=== PATIENT | female | born 1950 | race Caucasian/White ===

== ENCOUNTER → 2018-06-29 07:49 | Outpatient (CLI) | payer OTHER, SELFPAY ==
[2018-06-29 08:14] LABS: Add Manual Diff / Slide Review NO; Basophils Percent Auto 0.9 % (0-2); Eosinophils Percent Auto 2.1 % (2-4); Hematocrit 43.1 % (36-46); Hemoglobin 14.7 g/dL (12.0-16.0); Lymphocytes Percent Auto 24.8 % (25-40); Mean Corpuscular HGB Conc 34.2 % (30-36); Mean Corpuscular Hemoglobin 31.2 PG (26-34); Mean Corpuscular Volume 91.2 fL (80-100); Monocytes Percent Auto 6.3 % (3-14); Neutrophils Absolute Auto 5900 /uL (3000-5900); Neutrophils Percent Auto 65.9 % (50-75); Platelet Count 446 X10^3/uL (150-400); Red Blood Cell Count 4.73 X10^6/uL (4.0-5.2); Red Cell Distribution Width 13.6 % (11.6-14.8)
[2018-06-29 08:25] LABS: Alanine Aminotransferase 26 IU/L (9-52); Albumin 4.2 g/dL (3.5-5.0); Albumin Globulin Ratio 1.6 (1.0-2.8); Alkaline Phosphatase 67 U/L (38-126); Aspartate Aminotransferase 18 IU/L (14-36); BUN Creatinine Ratio 18.6 (6-22); Bilirubin Total 0.5 mg/dL (0.2-1.3); Blood Urea Nitrogen 13 mg/dL (7-17); Carbon Dioxide 26 mmol/L (22-32); Chloride 107 mmol/L (98-107); Cholesterol 296 mg/dL (140-199); Estimated Glomerular Filt Rate > 60.0 mL/min (>60); Globulin 2.6 g/dL (1.7-4.1); Glucose 110 mg/dL (80-110); HDL Cholesterol 55 mg/dL (40-60); HEMOLYSIS < 15 (0-50); LDL Cholesterol Calculated 203 mg/dL (<100); Potassium 4.2 mmol/L (3.4-5.1); Sodium 143 mmol/L (137-145); Total Protein 6.8 g/dL (6.3-8.2); Triglycerides 190 mg/dL (35-150)
[2018-06-29 09:02] LABS: Free T3, Triiodothyronine Free 3.14 pg/mL (2.77-5.27); Free T4, Direct Thyroxine 1.01 ng/dL (0.78-2.19)
[2018-06-29 09:15] LABS: Thyroid Stimulating Hormone 0.25 uIU/mL (0.47-4.68)
== END ==
PROVIDERS: PCP Family Medicine; Visit Provider Family Medicine
DX: E78.5 Hyperlipidemia, unspecified (principal); R79.89 Other specified abnormal findings of blood chemistry
CPT/HCPCS: 36415; 80053; 80061; 84439; 84443; 84481; 85025

== ENCOUNTER → 2018-07-16 07:55 | Outpatient (CLI) | payer OTHER, SELFPAY ==
[2018-07-16 09:16] LABS: Free T3, Triiodothyronine Free 3.72 pg/mL (2.77-5.27); Free T4, Direct Thyroxine 0.96 ng/dL (0.78-2.19)
[2018-07-16 09:29] LABS: Thyroid Stimulating Hormone 0.36 uIU/mL (0.47-4.68)
== END ==
PROVIDERS: PCP Family Medicine; Visit Provider Family Medicine
DX: R79.89 Other specified abnormal findings of blood chemistry (principal)
CPT/HCPCS: 36415; 84439; 84443; 84481

== ENCOUNTER → 2018-08-21 13:24 | Outpatient (CLI) | payer OTHER, SELFPAY ==
--- NOTE | 2018-08-21 13:25 | DI.MG.S_ITS ---
BILATERAL DIGITAL SCREENING MAMMOGRAM 3D/2D WITH CAD: 08/21/2018 CLINICAL: Routine screening. Baseline exam by default. No prior exams were available for comparison. The tissue of both breasts is predominantly fatty. Current study was also evaluated with a Computer Aided Detection (CAD) system. There is a focal asymmetry in the right breast at 3 o'clock anterior depth. There also is a focal asymmetry in the right breast at 11 o'clock anterior depth. There is a focal asymmetry in the left breast at 5 o'clock middle depth. No other significant masses or calcifications are seen in either breast. IMPRESSION: INCOMPLETE: NEEDS ADDITIONAL IMAGING EVALUATION The focal asymmetry in the right breast at 3 o'clock anterior depth is indeterminate. Additional views with possible ultrasound are recommended. The focal asymmetry in the right breast at 11 o'clock anterior depth is indeterminate. Additional views with possible ultrasound are recommended. The focal asymmetry in the left breast at 5 o'clock middle depth is indeterminate. Additional views with possible ultrasound are recommended. This exam was interpreted at Station ID: [id number]. NOTE: For mammograms, a report in lay terms will be sent to the patient. Approximately 15% of breast malignancies will not be visualized mammographically. In the management of a palpable breast mass, a negative mammogram must not discourage biopsy of a clinically suspicious lesion. Electronically Signed By: Bridget beach/hardik:08/21/2018 14:36:32 letter sent: Additional Imaging Needed ACR BI-RADS Category 0: Incomplete 3340F
== END ==
PROVIDERS: Family Provider Family Medicine; PCP Family Medicine; Visit Provider Family Medicine
DX: Z12.31 Encounter for screening mammogram for malignant neoplasm of breast (principal)
CPT/HCPCS: 77063; 77067

== ENCOUNTER → 2018-09-08 14:00 | Outpatient (CLI) | payer OTHER, SELFPAY ==
--- NOTE | 2018-09-08 14:01 | DI.US.S_ITS ---
LIMITED ULTRASOUND OF RIGHT BREAST AND AXILLA: 09/08/2018 CLINICAL: Additional evaluation requested from prior study. Comparison is made to exams dated: 09/08/2018 mammogram and 08/21/2018 mammogram - [facility]. Color flow and real-time ultrasound of the right breast 3 o'clock, and axilla regions were performed on the areas of interest. There is 0.8 cm x 0.6 cm x 0.7 cm oval mass with a microlobulated margin in the right breast at 3 o'clock middle depth. This oval mass is hypoechoic. This correlates with mammography findings. Color flow imaging demonstrates that there is vascularity present. There also is 0.6 cm x 0.3 cm x 0.5 cm oval mass with a circumscribed margin in the right breast at 10 o'clock middle depth. This oval mass is hypoechoic with a well-defined boundary. This likely correlates with mammography findings. Color flow imaging demonstrates that there is no vascularity present. No abnormalities were seen sonographically in the right axilla. IMPRESSION: SUSPICIOUS OF MALIGNANCY The 0.8 cm x 0.6 cm x 0.7 cm oval mass in the right breast at 3 o'clock middle depth is at a low suspicion for malignancy. An ultrasound guided biopsy is recommended. The 0.6 cm x 0.3 cm x 0.5 cm oval mass in the right breast at 10 o'clock middle depth is probably benign. This may be followed up in 6 months to demonstrate stability or further evaluation may be obtained with an ultrasound guided biopsy. Following consultation with the patient, a follow-up ultrasound in 6 months is recommended. The findings were discussed with the patient at the conclusion of the study by Dr. Carmona. This exam was interpreted at Station ID: [id number]. Electronically Signed By: Bull Salazar M.D. dddeb/:09/08/2018 16:52:43 letter sent: Biopsy Required Ultrasound BI-RADS: 4a Suspicious abnormality - low suspicion for malignancy
--- NOTE | 2018-09-08 14:01 | DI.US.S_ITS ---
LIMITED ULTRASOUND OF LEFT BREAST AND AXILLA: 09/08/2018 CLINICAL: Additional evaluation requested from prior study. Comparison is made to exams dated: 09/08/2018 mammogram and 08/21/2018 mammogram - [facility]. Color flow and real-time ultrasound of the left breast 4 o'clock, and axilla regions were performed on the areas of interest. There is 0.6 cm x 0.5 cm x 0.5 cm oval mass with an indistinct and circumscribed margin in the left breast at 4 o'clock anterior depth. This oval mass is hypoechoic and hyperechoic but of mixed echogenicity with fatty hilum. This correlates with mammography findings. Color flow imaging demonstrates that there is vascularity present. No abnormalities were seen sonographically in the left axilla. IMPRESSION: PROBABLY BENIGN The 0.6 cm x 0.5 cm x 0.5 cm oval mass in the left breast resembles a lymph node and is probably benign. Followup may be obtained in 6 months or further evaluation may be be obtained with an ultrasound guided biopsy. Following discussion with the patient, follow-up mammogram and ultrasound in 6 months are recommended. A follow-up mammogram and an ultrasound in 6 months is recommended to demonstrate stability. The findings were discussed with the patient at the conclusion of the study by Dr. Carmona. This exam was interpreted at Station ID: [id number]. Electronically Signed By: Bull sherman/:09/08/2018 16:55:53 letter sent: Followup Recommended Ultrasound BI-RADS: 3 Probably benign
--- NOTE | 2018-09-08 14:01 | DI.MG.S_ITS ---
BILATERAL DIGITAL DIAGNOSTIC MAMMOGRAM 3D/2D WITH ADDITIONAL VIEWS: 09/08/2018 CLINICAL: Additional evaluation requested from prior study. Comparison is made to exam dated: 08/21/2018 [facility]. There are scattered fibroglandular elements in both breasts. There is 1.2 cm oval equal density mass with a microlobulated margin in the right breast at 3 o'clock anterior depth. There also is 0.7 cm oval equal density asymmetry with an indistinct and circumscribed margin in the right breast at 10 o'clock middle depth. There is 0.5 cm oval equal density mass with a circumscribed margin in the left breast at 4 o'clock anterior depth. No other significant masses or calcifications are seen in either breast. IMPRESSION: INCOMPLETE: NEEDS ADDITIONAL IMAGING EVALUATION The 1.2 cm oval equal density mass in the right breast at 3 o'clock anterior depth is indeterminate. An ultrasound is recommended. The 0.7 cm oval equal density asymmetry in the right breast at 10 o'clock middle depth is indeterminate. An ultrasound is recommended. The 0.5 cm oval equal density mass in the left breast at 4 o'clock anterior depth is indeterminate. An ultrasound is recommended. This exam was interpreted at Station ID: [id number]. NOTE: For mammograms, a report in lay terms will be sent to the patient. Approximately 15% of breast malignancies will not be visualized mammographically. In the management of a palpable breast mass, a negative mammogram must not discourage biopsy of a clinically suspicious lesion. Electronically Signed By: Bull shermna/hardik:09/08/2018 16:48:19 letter sent: Need Ultrasound ACR BI-RADS Category 0: Incomplete 3340F
== END ==
PROVIDERS: Family Provider Family Medicine; PCP Family Medicine; Visit Provider Family Medicine
DX: R92.8 Other abnormal and inconclusive findings on diagnostic imaging of breast (principal); N63.11 Unspecified lump in the right breast, upper outer quadrant; N63.10 Unspecified lump in the right breast, unspecified quadrant; N63.23 Unspecified lump in the left breast, lower outer quadrant
CPT/HCPCS: 76642; 77066; G0279

== ENCOUNTER → 2018-09-24 13:38 | Outpatient (CLI) | payer OTHER, SELFPAY ==
--- NOTE | 2018-09-24 | PATH_ITS ---
[facility] Accession Number: [id number] . 01 Material submitted: . RIGHT BREAST MASS . 02 Diagnosis: Right Breast Mass, Needle Core Biopsy: Benign breast parenchyma with fibroadenomatous and fibrocystic changes. There are scattered calcifications and regions of florid adenosis. Negative for atypia or malignancy. MRV/09/25/2018 . 02 Electronically signed: . Cari Ribera MD, Pathologist NPI- [id number] . 01 Gross description: . Received one formalin-filled container labeled with the patient's name and designated right breast mass. The specimen is received with plastic filter, sample loose in container. The specimen consists of multiple light yellow-bass to bass-bernard tissue, which aggregate to 1.5 x 0.7 x 0.3 cm. The specimen is entirely submitted in one cassette. Collection date 09/24/2018. No collection time given. Total fixation time 12 hours up to 24. ([facility]:[id number]) /[facility] . 02 Pathologist provided ICD-10: N63.10 . 02 CPT . 231629 Performed at: 01 [facility] [address] [place] [address], [place], [place] [id number] MD Bull Bocanegra MD Phone: [phone] Performed at: 02 [facility] [address] [place], [place] [id number] MD Hina Walter MD Phone: [phone]
--- NOTE | 2018-09-24 | DI.MG.S_ITS ---
UNILATERAL RIGHT DIGITAL DIAGNOSTIC MAMMOGRAM POST-NEEDLE BIOPSY: 09/24/2018 CLINICAL: Right breast mass. Comparison is made to exams dated: 09/08/2018 ultrasound, 09/08/2018 mammogram, and 08/21/2018 mammogram - [facility]. There are scattered fibroglandular elements in right breast. There is a marker clip in the appropriate position in the right breast at 3 o'clock middle depth. This marker clip placement is at the biopsy site. IMPRESSION: POST PROCEDURE MAMMOGRAM FOR MARKER PLACEMENT There was a successful marker clip placement in the right breast middle depth. This exam was interpreted at Station ID: [id number]. NOTE: For mammograms, a report in lay terms will be sent to the patient. Approximately 15% of breast malignancies will not be visualized mammographically. In the management of a palpable breast mass, a negative mammogram must not discourage biopsy of a clinically suspicious lesion. Electronically Signed By: Allen manjarrez/:09/24/2018 15:59:25 ACR BI-RADS Category Post-procedure mammogram for marker placement
--- NOTE | 2018-09-24 13:39 | DI.US.S_ITS ---
ULTRASOUND GUIDED BIOPSY RIGHT BREAST USING VACUUM DEVICE WITH MARKING DEVICE INSERTED: 09/24/2018 CLINICAL: RIGHT BREAST BIOPSY. PATIENT CONSENT: Risks (minor bleeding, infection, vasovagal reaction and repeat procedure), benefits and alternatives were explained to the patient and written informed consent was obtained. Correlation is made to exams dated: 09/24/2018 mammogram, 09/08/2018 ultrasound, 09/08/2018 ultrasound, 09/08/2018 mammogram, and 08/21/2018 mammogram - [facility]. An ultrasound guided biopsy using real-time ultrasound was performed for the mass located in the right breast at 3 o'clock middle depth. The skin was prepped in the usual manner. Local anesthetic was administered to the access site. A small incision was made in the breast. The abnormality was approached from the medial aspect. A biopsy needle was placed adjacent to the abnormality under ultrasound guidance. Once the needle was documented to be in the correct location, five specimens were obtained using the Mammotome biopsy system. A clip was inserted into the biopsy cavity. The specimens were sent to the laboratory for pathological analysis. IMPRESSION: ULTRASOUND GUIDED BIOPSY BENIGN Ultrasound guided biopsy of the mass in the right breast at 3 o'clock middle depth was successful. Pathology demonstrated benign breast parenchma with fibroadenomatous and fibrocystic changes. No evidence for malignancy. Pathology results are concordant with imaging findings. Recommend follow up bilateral breast ultrasounds in 6 months for two separate probably benign lesions in each breast. A left breast mammogram is also recommended in 6 months. This exam was interpreted at Station ID: [id number]. Allen manjarrez,aty/:09/29/2018 09:04:29
== END ==
PROVIDERS: PCP Family Medicine; Visit Provider Family Medicine
DX: N60.21 Fibroadenosis of right breast (principal); N60.11 Diffuse cystic mastopathy of right breast
CPT/HCPCS: 19083; 77065

== ENCOUNTER → 2018-10-23 07:39 | Outpatient (CLI) | payer OTHER, SELFPAY ==
[2018-10-23 09:10] LABS: Alanine Aminotransferase 27 IU/L (9-52); Albumin 4.3 g/dL (3.5-5.0); Albumin Globulin Ratio 1.9 (1.0-2.8); Alkaline Phosphatase 73 U/L (38-126); Aspartate Aminotransferase 19 IU/L (14-36); BUN Creatinine Ratio 27.1 (6-22); Bilirubin Total 0.7 mg/dL (0.2-1.3); Blood Urea Nitrogen 19 mg/dL (7-17); Calcium 9.4 mg/dL (8.4-10.2); Carbon Dioxide 27 mmol/L (22-32); Chloride 104 mmol/L (98-107); Cholesterol 172 mg/dL (140-199); Estimated Glomerular Filt Rate > 60.0 mL/min (>60); Globulin 2.3 g/dL (1.7-4.1); Glucose 111 mg/dL (80-110); HDL Cholesterol 60 mg/dL (40-60); HEMOLYSIS < 15 (0-50); LDL Cholesterol Calculated 85 mg/dL (<100); Potassium 4.8 mmol/L (3.4-5.1); Sodium 140 mmol/L (137-145); Total Protein 6.6 g/dL (6.3-8.2); Triglycerides 137 mg/dL (35-150)
== END ==
PROVIDERS: PCP Family Medicine; Visit Provider Family Medicine
DX: E78.5 Hyperlipidemia, unspecified (principal)
CPT/HCPCS: 36415; 80053; 80061

== ENCOUNTER → 2018-12-25 09:28 | Outpatient (CLI) | payer OTHER, SELFPAY | PROVIDERS: PCP Family Medicine; Visit Provider Family Medicine | DX: M81.0 Age-related osteoporosis without current pathological fracture (principal); Z78.0 Asymptomatic menopausal state | CPT/HCPCS: 77080 ==

== ENCOUNTER → 2019-04-22 12:38 | Outpatient (CLI) | payer OTHER, SELFPAY ==
--- NOTE | 2019-04-22 12:39 | DI.US.S_ITS ---
LIMITED ULTRASOUND OF RIGHT BREAST: 04/22/2019 CLINICAL: 6 month follow-up biopsy. Comparison is made to exams dated: 04/22/2019 mammogram, 09/24/2018 ultrasound biopsy, 09/24/2018 mammogram, 09/08/2018 ultrasound, 09/08/2018 mammogram, and 08/21/2018 mammogram - [facility]. Color flow and real-time ultrasound of the right breast 3 o'clock and 10 o'clock regions were performed on the areas of interest. There is a 1.2 cm x 0.6 cm x 0.8 cm oval mass with a circumscribed margin in the right breast at 3 o'clock anterior depth. This oval mass is hypoechoic. This abnormality is increased in size and correlates with the previous biopsy. Color flow imaging demonstrates that there is no vascularity present. There also is a 0.7 cm x 0.5 cm x 0.3 cm oval mass with a circumscribed margin in the right breast at 10 o'clock middle depth. This oval mass is hypoechoic. This abnormality is not significantly changed and correlates with mammography findings. Color flow imaging demonstrates that there is no vascularity present. IMPRESSION: PROBABLY BENIGN The 1.2 cm x 0.6 cm x 0.8 cm oval mass in the right breast at 3 o'clock anterior depth is probably benign. A follow-up ultrasound in 6 months is recommended. The 0.7 cm x 0.5 cm x 0.3 cm oval mass in the right breast at 10 o'clock middle depth is probably benign. Follow-up mammogram and ultrasound in 6 months is recommended. A follow-up mammogram and an ultrasound in 6 months is recommended to demonstrate stability. This exam was interpreted at Station ID: [id number]. Electronically Signed By: Bull sherman/hardik:04/22/2019 14:46:06 letter sent: Followup Recommended Ultrasound BI-RADS: 3 Probably benign
--- NOTE | 2019-04-22 12:39 | DI.MG.S_ITS ---
BILATERAL DIGITAL DIAGNOSTIC MAMMOGRAM 3D/2D SHORT-TERM FOLLOW-UP: 04/22/2019 CLINICAL: Patient returns for a 6 month follow up of bilateral breasts. Comparison is made to exams dated: 08/21/2018 mammogram, 09/08/2018 mammogram, 09/08/2018 ultrasound, and 09/08/2018 ultrasound - [facility]. There are scattered fibroglandular elements in both breasts. There is an oval equal density mass with an obscured and circumscribed margin in the right breast at 11 o'clock anterior depth. This is not significantly changed. There also is a benign 1 cm oval equal density mass with a circumscribed margin in the right breast at 2 o'clock anterior depth. This is decreased in size and correlates with the biopsy. There is a biopsy clip associated with the mass. The oval low density focal asymmetry with an indistinct margin in the left breast at 5 o'clock anterior depth is no longer seen. No other significant masses or calcifications are seen in either breast. IMPRESSION: INCOMPLETE: NEEDS ADDITIONAL IMAGING EVALUATION The oval equal density mass in the right breast at 11 o'clock anterior depth is indeterminate. An ultrasound is recommended. An ultrasound is recommended to confirm the no longer seen oval low density focal asymmetry in the left breast at 5 o'clock anterior depth. This exam was interpreted at Station ID: [id number]. NOTE: For mammograms, a report in lay terms will be sent to the patient. Approximately 15% of breast malignancies will not be visualized mammographically. In the management of a palpable breast mass, a negative mammogram must not discourage biopsy of a clinically suspicious lesion. Electronically Signed By: Bull sherman/hardik:04/22/2019 13:46:22 ACR BI-RADS Category 0: Incomplete 3340F
--- NOTE | 2019-04-22 12:39 | DI.US.S_ITS ---
LIMITED ULTRASOUND OF LEFT BREAST: 04/22/2019 CLINICAL: 6 month follow. Comparison is made to exams dated: 04/22/2019 mammogram, 09/08/2018 ultrasound, 09/08/2018 mammogram, and 08/21/2018 mammogram - [facility]. Color flow and real-time ultrasound of the left breast 4 o'clock region were performed on the areas of interest. There is a benign 0.3 cm x 0.3 cm x 0.2 cm oval lymph node in the left breast at 4 o'clock anterior depth. This oval lymph node is of mixed echogenicity with fatty hilum. This abnormality is decreased in size and correlates with mammography findings. Color flow imaging demonstrates that there is no increase in vascularity. IMPRESSION: BENIGN There is no sonographic evidence of malignancy. The 0.3 cm x 0.3 cm x 0.2 cm oval lymph node in the left breast is benign. A 1 year screening mammogram is recommended. This exam was interpreted at Station ID: [id number]. Electronically Signed By: Bull sherman/hardik:04/22/2019 14:53:46 letter sent: Normal Exam Ultrasound BI-RADS: 2 Benign
== END ==
PROVIDERS: PCP Family Medicine; Visit Provider Family Medicine
DX: R92.8 Other abnormal and inconclusive findings on diagnostic imaging of breast (principal); N63.11 Unspecified lump in the right breast, upper outer quadrant; N63.12 Unspecified lump in the right breast, upper inner quadrant; N64.89 Other specified disorders of breast
CPT/HCPCS: 76642; 77066; G0279

== ENCOUNTER → 2020-02-28 08:23 | Outpatient (CLI) | payer OTHER, SELFPAY ==
--- NOTE | 2020-02-28 08:24 | DI.MG.S_ITS ---
BILATERAL DIGITAL DIAGNOSTIC MAMMOGRAM 3D/2D SHORT-TERM FOLLOW-UP: 02/28/2020 CLINICAL: Patient returns for a 12 month follow up of the right breast, due for bilateral exam. Comparison is made to exams dated: 04/22/2019 mammogram, 09/24/2018 mammogram, 09/08/2018 mammogram, and 08/21/2018 mammogram - [facility]. There are scattered fibroglandular elements in both breasts. There is a 1 cm oval equal density mass with a circumscribed margin in the right breast at 3 o'clock anterior depth. This is not significantly changed and correlates with the biopsy. There is a biopsy clip associated with the mass. There also is an oval equal density mass with an obscured and circumscribed margin in the right breast at 10 o'clock anterior depth. This is less prominent. No other significant masses, calcifications, or other findings are seen in either breast. IMPRESSION: INCOMPLETE: NEEDS ADDITIONAL IMAGING EVALUATION The 1 cm oval equal density mass in the right breast at 3 o'clock anterior depth is indeterminate. A targeted ultrasound is recommended and will immediately follow. The oval equal density mass in the right breast at 10 o'clock anterior depth is indeterminate. A targeted ultrasound is recommended and will immediately follow. This exam was interpreted at Station ID: [id number]. NOTE: For mammograms, a report in lay terms will be sent to the patient. Approximately 15% of breast malignancies will not be visualized mammographically. In the management of a palpable breast mass, a negative mammogram must not discourage biopsy of a clinically suspicious lesion. Electronically Signed By: Ignacio Babin M.D. slc/:02/28/2020 10:41:53 ACR BI-RADS Category 0: Incomplete 3340F
--- NOTE | 2020-02-28 08:24 | DI.US.S_ITS ---
LIMITED ULTRASOUND OF RIGHT BREAST: 02/28/2020 CLINICAL: 6 month follow-up of masses. Comparison is made to exams dated: 02/28/2020 mammogram, 04/22/2019 ultrasound, 04/22/2019 mammogram, 09/24/2018 ultrasound biopsy, and 09/24/2018 mammogram - [facility]. Color flow and real-time ultrasound of the right breast 3 o'clock and 10 o'clock regions were performed. Laureano scale images of the real-time examination were reviewed. There is a stable 1 x 0.8 x 0.6 cm (previously 1.2 x 0.8 x 0.6 cm and demonstrated increase in size) oval mass with a circumscribed margin in the right breast at 3 o'clock anterior depth 1 cm from the nipple. This oval mass is hypoechoic with posterior acoustic shadowing. This correlates with the previous biopsy. Color flow imaging demonstrates that there is vascularity present. Second mass at 10:00 o'clock 6 cm from the nipple is no longer seen. IMPRESSION: PROBABLY BENIGN 1) Stable 1 cm oval mass in the right breast corresponding to prior biopsy site is probably benign. -A follow-up ultrasound in 6 months is recommended. If the lesion remains stable, this lesion can likely be called benign. 2) Second mass at 10:00 o'clock 6 cm from the nipple is no longer seen. -This area can be screened on follow-up ultrasound in 6 months. This exam was interpreted at Station ID: [id number]. Electronically Signed By: Ignacio Babin M.D. slc/:02/28/2020 10:49:44 letter sent: Followup Recommended Ultrasound BI-RADS: 3 Probably benign
== END ==
PROVIDERS: PCP Nurse Practitioner Family; Referring Provider Nurse Practitioner Family; Visit Provider Nurse Practitioner Family
DX: R92.8 Other abnormal and inconclusive findings on diagnostic imaging of breast (principal); N63.15 Unspecified lump in the right breast, overlapping quadrants
CPT/HCPCS: 76642; 77066; G0279

== ENCOUNTER → 2020-05-23 08:21 | Outpatient (CLI) | payer OTHER, SELFPAY ==
[2020-05-23 09:06] LABS: Hemoglobin A1C% w Est Avg Glu 5.6 % (4.0-6.0)
[2020-05-23 09:08] LABS: HEMOLYSIS < 15 (0-50); Iron 121 ug/dL (37-170)
[2020-05-23 09:10] LABS: Hematocrit 39.9 % (36-46); Hemoglobin 13.6 g/dL (12.0-16.0); Mean Corpuscular HGB Conc 34.2 % (30-36); Mean Corpuscular Hemoglobin 31.4 PG (26-34); Mean Corpuscular Volume 91.7 fL (80-100); Platelet Count 370 X10^3/uL (150-400); Red Blood Cell Count 4.35 X10^6/uL (4.0-5.2); Red Cell Distribution Width 13.5 % (11.6-14.8); White Blood Cell Count 7.6 X10^3/uL (4.5-11.0)
[2020-05-23 09:12] LABS: Alanine Aminotransferase 15 IU/L (<35); Albumin 4.3 g/dL (3.5-5.0); Albumin Globulin Ratio 1.7 (1.0-2.8); Alkaline Phosphatase 65 U/L (38-126); Aspartate Aminotransferase 23 IU/L (14-36); BUN Creatinine Ratio 19.4 (6-22); Bilirubin Total 0.7 mg/dL (0.2-1.3); Blood Urea Nitrogen 13 mg/dL (7-17); Calcium 9.1 mg/dL (8.4-10.2); Carbon Dioxide 30 mmol/L (22-32); Chloride 105 mmol/L (98-107); Cholesterol 232 mg/dL (140-199); Estimated Glomerular Filt Rate > 60.0 mL/min (>60); Globulin 2.5 g/dL (1.7-4.1); Glucose 121 mg/dL (80-110); HDL Cholesterol 52 mg/dL (40-60); HEMOLYSIS < 15 (0-50); LDL Cholesterol Calculated 134 mg/dL (<100); Potassium 4.2 mmol/L (3.4-5.1); Sodium 139 mmol/L (137-145); Total Protein 6.8 g/dL (6.3-8.2); Triglycerides 228 mg/dL (35-150)
[2020-05-23 09:19] LABS: Percent Iron Saturation 39 % (15-50); Total Iron Binding Capacity 310 ug/dL (265-497); Transferrin 255 mg/dL (206-381)
[2020-05-23 09:40] LABS: TSH w/ Reflex to FT4 0.18 uIU/mL (0.47-4.68)
[2020-05-23 09:44] LABS: Ferritin 80 ng/mL (11-264)
== END ==
PROVIDERS: PCP Nurse Practitioner Family; Referring Provider Nurse Practitioner Family; Visit Provider Nurse Practitioner Family
DX: Z00.00 Encounter for general adult medical examination without abnormal findings (principal); E05.90 Thyrotoxicosis, unspecified without thyrotoxic crisis or storm; M81.0 Age-related osteoporosis without current pathological fracture; D50.9 Iron deficiency anemia, unspecified; E78.2 Mixed hyperlipidemia; R73.01 Impaired fasting glucose
CPT/HCPCS: 36415; 80053; 80061; 82728; 83036; 83540; 83550; 84439; 84443; 84481; 85027

== ENCOUNTER → 2020-08-31 10:40 | Outpatient (CLI) | payer MEDICARE, SELFPAY ==
[2020-08-31] MEDS: COVID-19 VACC #1, MRNA(MOD) 100 MCG/0.5 ML VIAL IM (10:45)
== END ==
PROVIDERS: PCP Nurse Practitioner Family; Visit Provider Internal Medicine
DX: Z23 Encounter for immunization (principal)
CPT/HCPCS: 0011A; 91301

== ENCOUNTER → 2020-09-26 09:34 | Outpatient (CLI) | payer OTHER, SELFPAY ==
--- NOTE | 2020-09-26 09:35 | DI.US.S_ITS ---
ULTRASOUND OF RIGHT BREAST: 09/26/2020 CLINICAL: Patient returns today to evaluate focal asymmetries in the right breast. Comparison is made to exams dated: 02/28/2020 ultrasound, 02/28/2020 mammogram, 04/22/2019 ultrasound, 04/22/2019 mammogram, 09/24/2018 mammogram, and 09/08/2018 ultrasound - [facility]. Doppler ultrasound of the right breast was performed. Laureano scale images of the real-time examination were reviewed. There is a stable 1 cm x 0.8 cm x 0.6 cm oval mass with a circumscribed margin in the right breast at 3 o'clock anterior depth 1 cm from the nipple. This oval mass is hypoechoic with posterior acoustic shadowing. This correlates with the previous biopsy. Color flow imaging demonstrates that there is vascularity present. IMPRESSION: PROBABLY BENIGN The stable 1 cm x 0.8 cm x 0.6 cm oval mass in the right breast is probably benign and stable for 18 months. A follow-up ultrasound in 6 months is recommended at the time of annual screening in 6 months. This will then be 2 years of stability. This exam was interpreted at Station ID: [id number]. Electronically Signed By: Cyrus Gutierrez acr/:09/26/2020 11:17:12 letter sent: Followup Recommended Ultrasound BI-RADS: 3 Probably benign
== END ==
PROVIDERS: PCP Nurse Practitioner Family; Referring Provider Nurse Practitioner Family; Visit Provider Nurse Practitioner Family
DX: R92.8 Other abnormal and inconclusive findings on diagnostic imaging of breast (principal); N63.15 Unspecified lump in the right breast, overlapping quadrants
CPT/HCPCS: 76642

== ENCOUNTER → 2020-09-28 10:45 | Outpatient (CLI) | payer MEDICARE, SELFPAY ==
[2020-09-28] MEDS: COVID-19 VACC #2, MRNA(MOD) 100 MCG/0.5 ML VIAL IM (10:46)
== END ==
PROVIDERS: PCP Nurse Practitioner Family; Visit Provider Internal Medicine
DX: Z23 Encounter for immunization (principal)
CPT/HCPCS: 0012A; 91301

== ENCOUNTER → 2021-02-01 08:38 | Outpatient (CLI) | payer OTHER, SELFPAY ==
[2021-02-01 09:24] LABS: Hematocrit 40.8 % (36-46); Hemoglobin 13.7 g/dL (12.0-16.0); Mean Corpuscular HGB Conc 33.5 % (30-36); Mean Corpuscular Hemoglobin 30.9 PG (26-34); Mean Corpuscular Volume 92.2 fL (80-100); Platelet Count 367 X10^3/uL (150-400); Red Blood Cell Count 4.43 X10^6/uL (4.0-5.2); Red Cell Distribution Width 13.4 % (11.6-14.8); White Blood Cell Count 9.7 X10^3/uL (4.5-11.0)
[2021-02-01 10:10] LABS: Alanine Aminotransferase 22 IU/L (<35); Albumin 4.3 g/dL (3.5-5.0); Albumin Globulin Ratio 1.7 (1.0-2.8); Alkaline Phosphatase 63 U/L (38-126); Aspartate Aminotransferase 30 IU/L (14-36); BUN Creatinine Ratio 17.6 (6-22); Bilirubin Total 0.6 mg/dL (0.2-1.3); Blood Urea Nitrogen 13 mg/dL (7-17); Calcium 9.6 mg/dL (8.4-10.2); Carbon Dioxide 24 mmol/L (22-32); Chloride 108 mmol/L (98-107); Cholesterol 194 mg/dL (140-199); Estimated Glomerular Filt Rate > 60.0 mL/min (>60); Globulin 2.5 g/dL (1.7-4.1); Glucose 109 mg/dL (80-110); HDL Cholesterol 76 mg/dL (40-60); HEMOLYSIS < 15 (0-50); LDL Cholesterol Calculated 93 mg/dL (<100); Potassium 4.5 mmol/L (3.4-5.1); Sodium 140 mmol/L (137-145); Total Protein 6.8 g/dL (6.3-8.2); Triglycerides 123 mg/dL (35-150)
[2021-02-01 10:15] LABS: Vitamin D 25 Hydroxy (D3) 50.1 ng/mL (30.0-100.0)
[2021-02-01 10:41] LABS: TSH w/ Reflex to FT4 0.04 uIU/mL (0.47-4.68)
[2021-02-01 11:24] LABS: Free T4, Direct Thyroxine 1.21 ng/dL (0.78-2.19)
== END ==
PROVIDERS: PCP Nurse Practitioner Family; Referring Provider Nurse Practitioner Family; Visit Provider Nurse Practitioner Family
DX: Z00.00 Encounter for general adult medical examination without abnormal findings (principal); E05.90 Thyrotoxicosis, unspecified without thyrotoxic crisis or storm; M81.0 Age-related osteoporosis without current pathological fracture; D50.9 Iron deficiency anemia, unspecified; E78.2 Mixed hyperlipidemia
CPT/HCPCS: 36415; 80053; 80061; 82306; 84439; 84443; 85027

== ENCOUNTER → 2021-03-12 09:18 | Outpatient (CLI) | payer OTHER, SELFPAY ==
--- NOTE | 2021-03-12 | DI.MG.S_ITS ---
BILATERAL DIGITAL SCREENING MAMMOGRAM 3D/2D WITH CAD: 03/12/2021 CLINICAL: Routine screening. Comparison is made to exams dated: 09/26/2020 ultrasound, 02/28/2020 ultrasound, 02/28/2020 mammogram, 04/22/2019 mammogram, 09/08/2018 mammogram, and 08/21/2018 mammogram - [facility]. There are scattered fibroglandular elements in both breasts. Current study was also evaluated with a Computer Aided Detection (CAD) system. There is a stable oval mass with a circumscribed margin in the right breast at 3 o'clock anterior depth. This correlates with the biopsy. There is a biopsy clip associated with the mass. No other significant masses, calcifications, or other findings are seen in either breast. IMPRESSION: INCOMPLETE: NEEDS ADDITIONAL IMAGING EVALUATION The stable oval mass in the right breast is indeterminate. Targeted ultrasound is recommended for further evaluation, which will be performed immediately following this exam. This exam was interpreted at Station ID: [id number]. NOTE: For mammograms, a report in lay terms will be sent to the patient. Approximately 15% of breast malignancies will not be visualized mammographically. In the management of a palpable breast mass, a negative mammogram must not discourage biopsy of a clinically suspicious lesion. Electronically Signed By: Chas dumont/hardik:03/12/2021 11:20:59 ACR BI-RADS Category 0: Incomplete 3340F
--- NOTE | 2021-03-12 09:21 | DI.RAD.S_ITS ---
PROCEDURE: XR HIP W PEL IF DONE RT 2V INDICATIONS: right hip pain, no trauma TECHNIQUE: AP pelvis with lateral view(s) of the right hip(s). COMPARISON: None. FINDINGS: Bones: No fractures or dislocations. Pelvic ring appears intact. No suspicious bony lesions. There is [id number] bilateral degenerative hip joint space narrowing. No erosions. Soft tissues: The visualized bowel gas pattern is normal. No suspicious soft tissue calcifications. IMPRESSION: [id number] bilateral hip osteoarthritis. Dictated by: Rosita Escalante M.D. on 03/12/2021 at 15:00 Approved by: Rosita Escalante M.D. on 03/12/2021 at 15:02
--- NOTE | 2021-03-12 09:21 | DI.US.S_ITS ---
LIMITED ULTRASOUND OF RIGHT BREAST AND AXILLA: 03/12/2021 CLINICAL: Patient returns for a 6 month follow up of the right breast. Comparison is made to exams dated: 03/12/2021 mammogram, 09/26/2020 ultrasound, 02/28/2020 ultrasound, 02/28/2020 mammogram, 09/08/2018 ultrasound, and 09/24/2018 ultrasound [facility]. Color flow ultrasound of the right breast 3 o'clock, 10 o'clock, and axilla regions was performed. Laureano scale images of the real-time examination were reviewed. There is a stable benign 1 cm x 0.7 cm x 0.5 cm oval mass with a circumscribed margin in the right breast at 3 o'clock anterior depth 1 cm from the nipple. This oval mass is hypoechoic with posterior acoustic shadowing. This correlates with the previous biopsy. No significant abnormalities were seen sonographically in the right axilla. IMPRESSION: BENIGN There is no sonographic evidence of malignancy. The stable 1 cm x 0.7 cm x 0.5 cm oval mass in the right breast is benign. A 1 year screening mammogram is recommended. This exam was interpreted at Station ID: [id number]. Electronically Signed By: Chas dumont/hardik:03/12/2021 11:42:02 letter sent: Normal Exam Ultrasound BI-RADS: 2 Benign
== END ==
PROVIDERS: PCP Nurse Practitioner Family; Referring Provider Nurse Practitioner Family; Visit Provider Nurse Practitioner Family
DX: N63.15 Unspecified lump in the right breast, overlapping quadrants; M25.551 Pain in right hip; M16.0 Bilateral primary osteoarthritis of hip; M85.851 Other specified disorders of bone density and structure, right thigh; Z78.0 Asymptomatic menopausal state; Z82.62 Family history of osteoporosis; Z12.31 Encounter for screening mammogram for malignant neoplasm of breast
CPT/HCPCS: 73502; 76642; 77063; 77067; 77080

== ENCOUNTER → 2022-07-30 09:35 | Outpatient (CLI) | payer OTHER, SELFPAY ==
[2022-07-30 10:48] LABS: Alanine Aminotransferase 24 IU/L (<35); Albumin 4.2 g/dL (3.5-5.0); Albumin Globulin Ratio 1.6 (1.0-2.8); Alkaline Phosphatase 65 U/L (38-126); Aspartate Aminotransferase 24 IU/L (14-36); BUN Creatinine Ratio 24.3 (6-22); Bilirubin Total 0.6 mg/dL (0.2-1.3); Blood Urea Nitrogen 17 mg/dL (7-17); Calcium 9.1 mg/dL (8.4-10.2); Carbon Dioxide 25 mmol/L (22-32); Chloride 104 mmol/L (98-107); Cholesterol 175 mg/dL (140-199); Estimated Glomerular Filt Rate > 60 mL/min (>60); Globulin 2.7 g/dL (1.7-4.1); Glucose 121 mg/dL (80-110); HDL Cholesterol 68 mg/dL (40-60); HEMOLYSIS < 15 (0-50); LDL Cholesterol Calculated 80 mg/dL (<100); Potassium 4.1 mmol/L (3.4-5.1); Sodium 137 mmol/L (137-145); Total Protein 6.9 g/dL (6.3-8.2); Triglycerides 135 mg/dL (35-150)
[2022-07-30 11:05] LABS: Free T3, Triiodothyronine Free 4.88 pg/mL (2.77-5.27); Free T4, Direct Thyroxine 1.49 ng/dL (0.78-2.19)
== END ==
PROVIDERS: PCP Registered Nurse Diabetes Educator; Referring Provider Registered Nurse Diabetes Educator; Visit Provider Registered Nurse Diabetes Educator
DX: E05.90 Thyrotoxicosis, unspecified without thyrotoxic crisis or storm (principal); E78.2 Mixed hyperlipidemia; R73.01 Impaired fasting glucose
CPT/HCPCS: 36415; 80053; 80061; 84439; 84443; 84481

== ENCOUNTER → 2023-01-17 10:47 | Outpatient (CLI) | payer OTHER, SELFPAY ==
--- NOTE | 2023-01-17 | DI.MG.S_ITS ---
BILATERAL DIGITAL SCREENING MAMMOGRAM 3D/2D WITH CAD: 01/17/2023 CLINICAL: Routine screening. Comparison is made to exams dated: 03/12/2021 mammogram, 02/28/2020 mammogram, and 04/22/2019 mammogram - [facility]. There are scattered areas of fibroglandular density in both breasts (category b / 25%-50% glandular tissue). Current study was also evaluated with a Computer Aided Detection (CAD) system. There are benign calcifications in both breasts. No significant masses, calcifications, or other findings are seen in either breast. There has been no significant interval change. IMPRESSION: BENIGN There is no mammographic evidence of malignancy. A 1 year screening mammogram is recommended. Based on the Tyrer Cuzick model (a risk assessment model) the patient's lifetime risk is 3.1% and her 10 year risk is 2.1%. According to the ACR, ACS, and NCCN guidelines, an annual breast MRI exam along with mammogram is recommended if the patient's lifetime risk is 20% or greater. This exam was interpreted at Station ID: [id number]. NOTE: For mammograms, a report in lay terms will be sent to the patient. Approximately 15% of breast malignancies will not be visualized mammographically. In the management of a palpable breast mass, a negative mammogram must not discourage biopsy of a clinically suspicious lesion. Electronically Signed By: Heriberto eubanks/hardik:01/17/2023 14:48:30 letter sent: Normal Exam ACR BI-RADS Category 2: Benign Finding(s) 3342F
== END ==
PROVIDERS: PCP Registered Nurse Diabetes Educator; Referring Provider Registered Nurse Diabetes Educator; Visit Provider Registered Nurse Diabetes Educator
DX: Z12.31 Encounter for screening mammogram for malignant neoplasm of breast (principal)
CPT/HCPCS: 77063; 77067

== ENCOUNTER → 2023-03-14 12:08 | Outpatient (CLI) | payer OTHER, SELFPAY ==
--- NOTE | 2023-03-14 12:09 | DI.RAD.S_ITS ---
Bone Density Report Name: MCKENZIE MEYER Age: 73 Sex: Female Ethnicity: White Date of : 1950 Indication: postmenopausal; screening for osteoporosis; Referring Provider: DANNY TAYLOR Study: Bone densitometry was performed. Exam Date: March 14, 2023 Accession number: [id number] Bone Density: Region BMD T-score Z-score Classification AP Spine(L1-L4) 1.026 -0.2 2.0 Normal Femoral Neck (Left) 0.575 -2.5 -0.6 Osteoporosis Total Hip (Left) 0.737 -1.7 -0.1 Osteopenia Femoral Neck (Right) 0.587 -2.4 -0.4 Osteopenia Total Hip (Right) 0.740 -1.7 0.0 Osteopenia Total Hip Mean 0.738 -1.7 -0.1 Osteopenia World Health Organization criteria for BMD impression classify patients as: Normal (T-score at or above -1.0), Osteopenia (T-score between -1.0 and -2.5), or Osteoporosis (T-score at or below -2.5). 10-year Fracture Risk: FRAX not reported because: Some T-score for Spine Total or Hip Total or Femoral Neck at or below -2.5 Treated for osteoporosis Impression: The patient has osteoporosis, based on the Left Femoral Neck T-score. Discussion: It is important to ask patients whether they are taking their medications and to encourage continued and appropriate compliance with their osteoporosis therapies to reduce fracture risk. It is also important to review their risk factors and encourage appropriate calcium and vitamin D intakes, exercise, fall prevention and other lifestyle measures. Follow-Up: Consider a repeat BMD and Vertebral Fracture Assessment (VFA) exam in 2 years or sooner if medically necessary, to reassess this patient's status. Reported by: ANCA BRUCE M.D. on 03/14/2023 12:49:00 PM.
== END ==
PROVIDERS: PCP Registered Nurse Diabetes Educator; Referring Provider Registered Nurse Diabetes Educator; Visit Provider Registered Nurse Diabetes Educator
DX: M81.0 Age-related osteoporosis without current pathological fracture (principal); Z13.820 Encounter for screening for osteoporosis; Z78.0 Asymptomatic menopausal state
CPT/HCPCS: 77080

== ENCOUNTER → 2023-10-14 08:08 | Outpatient (CLI) | payer MEDICARE, SELFPAY ==
[2023-10-14 09:11] LABS: Hemoglobin A1C% w Est Avg Glu 5.3 % (4.0-6.0)
[2023-10-14 09:28] LABS: Alanine Aminotransferase 23 IU/L (<35); Albumin 4.3 g/dL (3.5-5.0); Albumin Globulin Ratio 1.7 (1.0-2.8); Alkaline Phosphatase 59 U/L (38-126); Aspartate Aminotransferase 29 IU/L (14-36); BUN Creatinine Ratio 22.4 (6-22); Blood Urea Nitrogen 17 mg/dL (7-17); Calcium 9.6 mg/dL (8.4-10.2); Carbon Dioxide 30 mmol/L (22-32); Chloride 106 mmol/L (98-107); Cholesterol 206 mg/dL (140-199); Estimated Glomerular Filt Rate > 60 mL/min (>60); Globulin 2.5 g/dL (1.7-4.1); Glucose 123 mg/dL (80-110); HDL Cholesterol 79 mg/dL (40-60); HEMOLYSIS < 15 (0-50); LDL Cholesterol Calculated 78 mg/dL (<100); Potassium 4.3 mmol/L (3.4-5.1); Sodium 139 mmol/L (137-145); Total Protein 6.8 g/dL (6.3-8.2); Triglycerides 245 mg/dL (35-150)
[2023-10-14 09:41] LABS: Free T3, Triiodothyronine Free 4.69 pg/mL (2.77-5.27); Free T4, Direct Thyroxine 1.05 ng/dL (0.78-2.19)
[2023-10-14 09:54] LABS: Thyroid Stimulating Hormone 0.368 uIU/mL (0.47-4.68)
== END ==
PROVIDERS: PCP Registered Nurse Diabetes Educator; Referring Provider Registered Nurse Diabetes Educator; Visit Provider Registered Nurse Diabetes Educator
DX: E05.90 Thyrotoxicosis, unspecified without thyrotoxic crisis or storm (principal); R73.01 Impaired fasting glucose; E78.2 Mixed hyperlipidemia
CPT/HCPCS: 36415; 80053; 80061; 83036; 84439; 84443; 84481

== ENCOUNTER → 2024-02-27 15:43 | Outpatient (CLI) | payer MEDICARE, SELFPAY ==
--- NOTE | 2024-02-27 | DI.MG.S_ITS ---
BILATERAL DIGITAL SCREENING MAMMOGRAM 3D/2D WITH CAD: 02/27/2024 CLINICAL: Routine screening. Comparison is made to exams dated: 01/17/2023 mammogram, 03/12/2021 mammogram, and 02/28/2020 mammogram - [facility]. There are scattered areas of fibroglandular density in both breasts (category b / 25%-50% glandular tissue). Current study was also evaluated with a Computer Aided Detection (CAD) system. There are benign calcifications in both breasts. There also is a biopsy clip in the right breast. No significant masses, calcifications, or other findings are seen in either breast. There has been no significant interval change. IMPRESSION: BENIGN There is no mammographic evidence of malignancy. A 1 year screening mammogram is recommended. Based on the Tyrer Cuzick model (a risk assessment model) the patient's lifetime risk is 2.7% and her 10 year risk is 2.2%. According to the ACR, ACS, and NCCN guidelines, an annual breast MRI exam along with mammogram is recommended if the patient's lifetime risk is 20% or greater. This exam was interpreted at Station ID: [id number]. NOTE: For mammograms, a report in lay terms will be sent to the patient. Approximately 15% of breast malignancies will not be visualized mammographically. In the management of a palpable breast mass, a negative mammogram must not discourage biopsy of a clinically suspicious lesion. Electronically Signed By: Ignacio onofre/hardik:03/01/2024 07:49:32 letter sent: Normal Exam ACR BI-RADS Category 2: Benign Finding(s) 3342F
== END ==
PROVIDERS: PCP Registered Nurse Diabetes Educator; Referring Provider Registered Nurse Diabetes Educator; Visit Provider Registered Nurse Diabetes Educator
DX: Z12.31 Encounter for screening mammogram for malignant neoplasm of breast (principal); R92.323 Mammographic fibroglandular density, bilateral breasts
CPT/HCPCS: 77063; 77067

== ENCOUNTER → 2024-10-18 08:50 | Outpatient (CLI) | payer MEDICARE, SELFPAY ==
[2024-10-18 09:39] LABS: Alanine Aminotransferase 34 IU/L (<35); Albumin 4.3 g/dL (3.5-5.0); Albumin Globulin Ratio 1.9 (1.0-2.8); Alkaline Phosphatase 64 U/L (38-126); Aspartate Aminotransferase 36 IU/L (14-36); BUN Creatinine Ratio 20.3 (6-22); Bilirubin Total 0.7 mg/dL (0.2-1.3); Blood Urea Nitrogen 15 mg/dL (7-17); Calcium 9.6 mg/dL (8.4-10.2); Carbon Dioxide 28 mmol/L (22-32); Chloride 105 mmol/L (98-107); Cholesterol 194 mg/dL (140-199); Estimated Glomerular Filt Rate > 60 mL/min (>60); Globulin 2.3 g/dL (1.7-4.1); Glucose 122 mg/dL (80-110); HDL Cholesterol 74 mg/dL (40-60); HEMOLYSIS < 15 (0-50); LDL Cholesterol Calculated 94 mg/dL (<100); Potassium 4.6 mmol/L (3.4-5.1); Sodium 138 mmol/L (137-145); Total Protein 6.6 g/dL (6.3-8.2); Triglycerides 128 mg/dL (35-150)
[2024-10-18 09:53] LABS: Free T3, Triiodothyronine Free 4.98 pg/mL (2.77-5.27); Free T4, Direct Thyroxine 1.16 ng/dL (0.78-2.19)
[2024-10-18 10:07] LABS: Thyroid Stimulating Hormone 0.105 uIU/mL (0.47-4.68)
== END ==
PROVIDERS: PCP Registered Nurse Diabetes Educator; Referring Provider Registered Nurse Diabetes Educator; Visit Provider Registered Nurse Diabetes Educator
DX: R73.01 Impaired fasting glucose (principal); E05.90 Thyrotoxicosis, unspecified without thyrotoxic crisis or storm; E78.2 Mixed hyperlipidemia
CPT/HCPCS: 36415; 80053; 80061; 83036; 84439; 84443; 84481

== ENCOUNTER → 2025-06-15 10:38 | Outpatient (CLI) | payer MEDICARE, SELFPAY ==
--- NOTE | 2025-06-15 10:39 | DI.RAD.S_ITS ---
PROCEDURE: XR DEXA AXIAL SKELETON
== END ==
LOC: RAD 10:38
PROVIDERS: PCP Registered Nurse Diabetes Educator; Referring Provider Registered Nurse Diabetes Educator; Visit Provider Registered Nurse Diabetes Educator
DX: M81.0 Age-related osteoporosis without current pathological fracture (principal)
CPT/HCPCS: 77080

== ENCOUNTER → 2025-06-16 10:59 | Outpatient (CLI) | payer MEDICARE, SELFPAY ==
--- NOTE | 2025-06-16 11:00 | DI.MG.S_ITS ---
MM screening mammo BI: 06/16/2025. BI-RADS: 2 CLINICAL: 75-year old female for bilateral screening mammogram. Tyrer-Cuzick lifetime risk of 1.8%. No personal or first-degree family history of breast cancer. The patient had a prior right breast biopsy. PRIOR EXAMS 02/27/2024, 01/17/2023, 03/12/2021, 09/26/2020, MAMMOGRAPHY TECHNIQUE: 2D and 3D (tomosynthesis) digital mammographic views obtained, with additional images as needed for full coverage. Current study was also evaluated with a Computer Aided Detection (CAD) system. DENSITY B. There are scattered areas of fibroglandular density. MAMMOGRAPHY FINDINGS Right: Biopsy marker present on the right. There are no suspicious masses, calcifications, or other findings in the breast. Left: No suspicious mass, asymmetry, microcalcification, or other abnormality seen. IMPRESSION: Right * No evidence of malignancy with benign findings. Left * No evidence of malignancy. RECOMMENDATIONS Bilateral * Annual screening mammography. OVERALL ASSESSMENT CATEGORY BI-RADS-2: Benign. The [employer] recommends annual screening mammography beginning at age 40 for women with average risk of breast cancer. ELECTRONICALLY SIGNED: Sara Tobar M.D. on 06/17/2025 at 03:16:32 PM PT Interpreting Station ID: [id number]
== END ==
PROVIDERS: PCP Registered Nurse Diabetes Educator; Referring Provider Registered Nurse Diabetes Educator; Visit Provider Registered Nurse Diabetes Educator
DX: Z12.31 Encounter for screening mammogram for malignant neoplasm of breast (principal)
CPT/HCPCS: 77063; 77067